=== PATIENT | male | born 1955 | race Caucasian/White ===

== ENCOUNTER 2020-10-10 17:55 | Emergency (ER) | payer BC ==
[~2020-10-10] VITALS: Ht 177.8 cm; Wt 83.9 kg
[2020-10-10] MEDS ORDERED: METOPROLOL SUCC25 MG PO (18:20)
[2020-10-10] MEDS ORDERED: ASPI325 PO (18:21)
[2020-10-10 18:29] LABS: BASOPHILS ABSOLUTE AUTO 0.03 K/mm3 (0.00-0.23); BASOPHILS PERCENT AUTO 0 % (0-2); EOSINOPHILS ABSOLUTE AUTO 0.02 K/mm3 (0.00-0.68); EOSINOPHILS PERCENT AUTO 0 % (0-6); IMMATURE GRAN ABSOLUTE AUTO 0.03 K/mm3 (0.00-0.10); IMMATURE GRAN PERCENT AUTO 0 % (0-1); LYMPHOCYTES ABSOLUTE AUTO 2.24 K/mm3 (0.84-5.20); LYMPHOCYTES PERCENT AUTO 28 % (21-46); MONOCYTES ABSOLUTE AUTO 0.65 K/mm3 (0.16-1.47); MONOCYTES PERCENT AUTO 8 % (4-13); Mean Corpuscular HGB 32.7 pg (26.0-34.0); Mean Corpuscular Volume 96 fL (80-100); Mean Platelet Volume 9.9 fL (9.1-12.4); NEUTROPHILS ABSOLUTE AUTO 5.04 K/mm3 (1.96-9.15); NEUTROPHILS PERCENT AUTO 63 % (41-73); Platelet Count 182 K/mm3 (150-400); RDW Standard Deviation 50.5 fL (35.1-46.3); White Blood Cell Count 8.01 K/mm3 (4.00-11.30)
[2020-10-10 21:19] LABS: Alanine Aminotransfer (ALT/SGP 112 U/L (12-78); Albumin, Blood 3.9 g/dL (3.4-5.0); Albumin/Globulin Ratio 1.2 (0.8-1.8); Alk Phos 50 U/L (50-136); Anion Gap 5 mmol/L (6-16); Aspartate Aminotrans (AST/SGOT 56 U/L (12-37); Bilirubin, Total 0.7 mg/dL (0.1-1.0); Blood Urea Nitrogen 12 mg/dL (8-24); Bun/Creatinine Ratio 13.6 (12.0-20.0); CO2, Blood 30 mmol/L (21-32); Calcium, Blood 8.9 mg/dL (8.5-10.1); Chloride, Blood 105 mmol/L (98-108); Creatinine, Blood 0.88 mg/dL (0.60-1.20); Globulin, Blood 3.2 g/dL (2.2-4.0); Glomerular Filtration Rate >60 (60-); Glucose, Blood 101 mg/dL (70-99); Potassium, Blood 4.1 mmol/L (3.5-5.5); Sodium, Blood 140 mmol/L (136-145); Total Protein, Blood 7.1 g/dL (6.4-8.2)
== END 2020-10-10 21:21 | disposition home or self-care (01) ==
LOC: ER 17:55
PROVIDERS: Physician Assistant
DX: J93.83 Other pneumothorax (principal); J44.9 Chronic obstructive pulmonary disease, unspecified; F17.210 Nicotine dependence, cigarettes, uncomplicated; Z86.010 Personal history of colon polyps
CPT/HCPCS: 32551; 36415; 71045; 71046; 80053; 85025; 93005; 93010; 96374-59; 99284-25; J3010

== ENCOUNTER 2020-10-18 12:23 | Inpatient (IN) | payer BC ==
[~2020-10-18] VITALS: Ht 182.9 cm; Wt 81.0 kg
[~2020-10-18 12:23] MED LIST: ASPI325 PO; METOPROLOL SUCC25 MG PO
[2020-10-18 15:42] LABS: BASOPHILS ABSOLUTE AUTO 0.03 K/mm3 (0.00-0.23); BASOPHILS PERCENT AUTO 1 % (0-2); EOSINOPHILS ABSOLUTE AUTO 0.04 K/mm3 (0.00-0.68); EOSINOPHILS PERCENT AUTO 1 % (0-6); Hematocrit 47.6 % (37.0-53.0); Hemoglobin 16.3 g/dL (13.5-17.5); IMMATURE GRAN ABSOLUTE AUTO 0.04 K/mm3 (0.00-0.10); IMMATURE GRAN PERCENT AUTO 1 % (0-1); LYMPHOCYTES ABSOLUTE AUTO 1.38 K/mm3 (0.84-5.20); LYMPHOCYTES PERCENT AUTO 23 % (21-46); MONOCYTES ABSOLUTE AUTO 0.56 K/mm3 (0.16-1.47); MONOCYTES PERCENT AUTO 9 % (4-13); Mean Corpuscular HGB 33.3 pg (26.0-34.0); Mean Corpuscular HGB Conc 34.2 g/dL (31.5-36.5); Mean Corpuscular Volume 97 fL (80-100); Mean Platelet Volume 10.8 fL (9.1-12.4); NEUTROPHILS ABSOLUTE AUTO 3.93 K/mm3 (1.96-9.15); NEUTROPHILS PERCENT AUTO 66 % (41-73); Platelet Count 215 K/mm3 (150-400); RDW Coefficient Variation 12.9 % (11.7-14.2); RDW Standard Deviation 46.4 fL (35.1-46.3); Red Blood Cell Count 4.89 M/mm3 (4.30-5.90); White Blood Cell Count 5.98 K/mm3 (4.00-11.30)
[2020-10-18 16:03] LABS: Alanine Aminotransfer (ALT/SGP 66 U/L (12-78); Albumin, Blood 3.8 g/dL (3.4-5.0); Alk Phos 53 U/L (50-136); Anion Gap 6 mmol/L (6-16); Aspartate Aminotrans (AST/SGOT 30 U/L (12-37); Bilirubin, Total 0.6 mg/dL (0.1-1.0); Blood Urea Nitrogen 10 mg/dL (8-24); Bun/Creatinine Ratio 12.8 (12.0-20.0); CO2, Blood 28 mmol/L (21-32); Calcium, Blood 9.4 mg/dL (8.5-10.1); Chloride, Blood 101 mmol/L (98-108); Creatinine, Blood 0.78 mg/dL (0.60-1.20); Glomerular Filtration Rate >60 (60-); Glucose, Blood 105 mg/dL (70-99); Potassium, Blood 4.7 mmol/L (3.5-5.5); Sodium, Blood 135 mmol/L (136-145); Total Protein, Blood 7.8 g/dL (6.4-8.2)
--- NOTE | 2020-10-18 21:14 | NUR ---
PT ARRIVED TO ROOM FROM ER. PT A/O, VSS. LUNGS DIM W/FAINT WHEEZING. PT REP LESS SOB SINCE CT REPLACED, DOES REP DIFFICULTY TAKING DEEP BREATH, HAS OCC LOOSE COUGH. 2LOC NC IN PLACE. CT CONNECTED TO SX. DRAIN UNABLE TO ACHEIVE SX, REPLACED BY DICK GOMEZ RN AFTER PT ARRIVED TO ROOM. DRAIN CONNECTED TO LOW SX, BUBBLING AND TIDALING PRESENT. NO CREPITUS NOTED. PT REP FEELING ANXIOUS, REP IS DAILY DRINKER OF 6-12 BEERS/DAY, LAST DRINK 10/17/20. PT ALSO REP HX PTSD/ANXIETY. PT MED FOR ANXIETY PER REQ. DISCUSSED WITHDRAWL SX, PT DENIES ANY AT THIS TIME. PT ORIENTED TO ROOM/CALL LIGHT, WILL MONITOR AND TX PER ORDERS.
--- NOTE | 2020-10-19 06:41 | NUR ---
PT VSS T/O NIGHT. SATS >92% ON 2LO2 NC. THORAVENT TO SX, BULLBLING AND TIDALING PRESENT, NO LEAKS NOTED. LUNGS DIM W/OCC WHEEZING, PT HAS LOOSE COUGH, REP PAIN W/DEEP BREATHS. PT MED FOR ANXIETY X1, DECLINED NEED FOR PAIN MEDS. CIWA STABLE.
--- NOTE | 2020-10-19 16:23 | NUR ---
DISCHARGE SUMMARY PATIENT ALERT AND ORIENTED THROUGHOUT SHIFT. EASY UNLABORED BREATHING. REPORTS MILD SORENESS TO RIGHT CHEST WALL AND RIBS. TOLERATING REGULAR DIET. VOIDING WELL. DISCHARGE ORDERS OBTAINED. DISCONNECTED CHEST TUBE FROM WALL SUCTION AND CLOSED CAP ON CHEST TUBE BOX. DC'D IV WNL. DISCHARGE EDUCATION GIVEN ON SIGNS AND SYMPTOMS OF PNEUMO AND WHEN TO RETURN TO ER. ALSO WHEN TO FOLLOW UP WITH DR SHERIDAN. PLAN IS TO CHECK PNEUMO WITH XRAY ON SATURDAY OF SATURDAY. DR SHERIDAN'S OFFICE WILL NOTIFY PATIENT. PATIENT LEFT UNIT VIA WHEELCHAIR FOR HOME AT 1615.
== END 2020-10-19 16:19 | disposition home or self-care (01) | DRG 201 ==
LOC: ER 12:23 → SURS 17:45
PROVIDERS: Emergency Medicine; ADMIT Surgery
PROC: 0WP930Z Removal of Drainage Device from Right Pleural Cavity, Percutaneous Approach (ICD-10-PCS; principal; 2020-10-18)
PROC: 0W9930Z Drainage of Right Pleural Cavity with Drainage Device, Percutaneous Approach (ICD-10-PCS; 2020-10-18)
DX: J93.83 Other pneumothorax (principal); I25.10 Atherosclerotic heart disease of native coronary artery without angina pectoris; F41.9 Anxiety disorder, unspecified; I10 Essential (primary) hypertension; F43.10 Post-traumatic stress disorder, unspecified; F17.210 Nicotine dependence, cigarettes, uncomplicated; Z95.5 Presence of coronary angioplasty implant and graft; Z79.82 Long term (current) use of aspirin; Z79.899 Other long term (current) drug therapy; Z98.890 Other specified postprocedural states
CPT/HCPCS: 32551; 36415; 71045; 80053; 85025; 96374-59; 96376-59; 99285-25; A9270; J1650; J2060

== ENCOUNTER 2020-11-22 17:14 | Emergency (ER) | payer BC ==
[~2020-11-22] VITALS: Ht 177.8 cm; Wt 81.2 kg
[2020-11-22 17:46] LABS: BASOPHILS ABSOLUTE AUTO 0.03 K/mm3 (0.00-0.23); BASOPHILS PERCENT AUTO 0 % (0-2); EOSINOPHILS ABSOLUTE AUTO 0.02 K/mm3 (0.00-0.68); EOSINOPHILS PERCENT AUTO 0 % (0-6); Hematocrit 49.2 % (37.0-53.0); IMMATURE GRAN ABSOLUTE AUTO 0.03 K/mm3 (0.00-0.10); IMMATURE GRAN PERCENT AUTO 0 % (0-1); LYMPHOCYTES ABSOLUTE AUTO 1.86 K/mm3 (0.84-5.20); LYMPHOCYTES PERCENT AUTO 28 % (21-46); MONOCYTES ABSOLUTE AUTO 0.63 K/mm3 (0.16-1.47); MONOCYTES PERCENT AUTO 9 % (4-13); Mean Corpuscular HGB 33.1 pg (26.0-34.0); Mean Corpuscular HGB Conc 34.6 g/dL (31.5-36.5); Mean Corpuscular Volume 96 fL (80-100); Mean Platelet Volume 10.3 fL (9.1-12.4); NEUTROPHILS ABSOLUTE AUTO 4.15 K/mm3 (1.96-9.15); NEUTROPHILS PERCENT AUTO 62 % (41-73); Platelet Count 185 K/mm3 (150-400); RDW Coefficient Variation 12.8 % (11.7-14.2); RDW Standard Deviation 46.1 fL (35.1-46.3); Red Blood Cell Count 5.13 M/mm3 (4.30-5.90); White Blood Cell Count 6.72 K/mm3 (4.00-11.30)
[2020-11-22] MEDS ORDERED: ATORVASTATIN CA40 M1 PO (17:46)
[2020-11-22 18:20] LABS: Alanine Aminotransfer (ALT/SGP 69 U/L (12-78); Albumin, Blood 4.1 g/dL (3.4-5.0); Alk Phos 58 U/L (50-136); Anion Gap 8 mmol/L (6-16); Aspartate Aminotrans (AST/SGOT 35 U/L (12-37); Bilirubin, Total 0.5 mg/dL (0.1-1.0); Blood Urea Nitrogen 9 mg/dL (8-24); Bun/Creatinine Ratio 10.6 (12.0-20.0); CO2, Blood 26 mmol/L (21-32); Calcium, Blood 9.3 mg/dL (8.5-10.1); Chloride, Blood 99 mmol/L (98-108); Creatinine, Blood 0.85 mg/dL (0.60-1.20); Globulin, Blood 4.1 g/dL (2.2-4.0); Glomerular Filtration Rate >60 (60-); Glucose, Blood 99 mg/dL (70-99); Potassium, Blood 4.1 mmol/L (3.5-5.5); Sodium, Blood 133 mmol/L (136-145); Total Protein, Blood 8.2 g/dL (6.4-8.2)
== END 2020-11-22 19:46 | disposition home or self-care (01) ==
LOC: ER 17:14
PROVIDERS: Physician Assistant
DX: J93.9 Pneumothorax, unspecified (principal); F17.210 Nicotine dependence, cigarettes, uncomplicated; Z88.6 Allergy status to analgesic agent; Z79.899 Other long term (current) drug therapy; Z79.82 Long term (current) use of aspirin
CPT/HCPCS: 32551; 36415; 71045; 80053; 85025; 96374; 96375; 99284-25; J2060; J3010

== ENCOUNTER 2020-12-15 00:08 | Emergency (ER) | payer BC ==
[~2020-12-15 00:08] MED LIST changes: +ATORVASTATIN CA40 M1 PO
== END 2020-12-15 04:02 | disposition home or self-care (01) ==
LOC: ER 00:08
DX: J93.9 Pneumothorax, unspecified (principal); F17.200 Nicotine dependence, unspecified, uncomplicated
CPT/HCPCS: 71046; 99283-25

== ENCOUNTER 2020-12-28 01:21 | Inpatient (IN) | payer BC ==
[~2020-12-28] VITALS: Ht 162.6 cm; Wt 78.9 kg
[2020-12-28] MEDS ORDERED: OXYCODONE-ACET1 EAC3 PO (01:52)
[2020-12-28] MEDS ORDERED: LOSA50 PO (01:53)
[2020-12-28] MEDS ORDERED: BUPR150ER PO (01:53)
[2020-12-28 02:18] LABS: BASOPHILS ABSOLUTE AUTO 0.02 K/mm3 (0.00-0.23); BASOPHILS PERCENT AUTO 0 % (0-2); EOSINOPHILS ABSOLUTE AUTO 0.01 K/mm3 (0.00-0.68); EOSINOPHILS PERCENT AUTO 0 % (0-6); Hematocrit 47.4 % (37.0-53.0); Hemoglobin 16.1 g/dL (13.5-17.5); IMMATURE GRAN ABSOLUTE AUTO 0.07 K/mm3 (0.00-0.10); IMMATURE GRAN PERCENT AUTO 1 % (0-1); LYMPHOCYTES ABSOLUTE AUTO 1.25 K/mm3 (0.84-5.20); LYMPHOCYTES PERCENT AUTO 18 % (21-46); MONOCYTES ABSOLUTE AUTO 0.54 K/mm3 (0.16-1.47); MONOCYTES PERCENT AUTO 8 % (4-13); Mean Corpuscular HGB 32.7 pg (26.0-34.0); Mean Corpuscular Volume 96 fL (80-100); Mean Platelet Volume 10.4 fL (9.1-12.4); NEUTROPHILS ABSOLUTE AUTO 5.05 K/mm3 (1.96-9.15); NEUTROPHILS PERCENT AUTO 73 % (41-73); Platelet Count 184 K/mm3 (150-400); RDW Coefficient Variation 13.1 % (11.7-14.2); RDW Standard Deviation 46.7 fL (35.1-46.3); Red Blood Cell Count 4.92 M/mm3 (4.30-5.90); White Blood Cell Count 6.94 K/mm3 (4.00-11.30)
[2020-12-28 02:33] LABS: Alanine Aminotransfer (ALT/SGP 55 U/L (12-78); Albumin, Blood 3.4 g/dL (3.4-5.0); Albumin/Globulin Ratio 0.7 (0.8-1.8); Alk Phos 55 U/L (50-136); Anion Gap 7 mmol/L (6-16); Aspartate Aminotrans (AST/SGOT 38 U/L (12-37); Bilirubin, Total 0.3 mg/dL (0.1-1.0); Blood Urea Nitrogen 9 mg/dL (8-24); Bun/Creatinine Ratio 11.6 (12.0-20.0); CO2, Blood 26 mmol/L (21-32); Calcium, Blood 9.5 mg/dL (8.5-10.1); Chloride, Blood 102 mmol/L (98-108); Creatinine, Blood 0.77 mg/dL (0.60-1.20); Globulin, Blood 4.6 g/dL (2.2-4.0); Glomerular Filtration Rate >60 (60-); Glucose, Blood 118 mg/dL (70-99); Potassium, Blood 4.2 mmol/L (3.5-5.5); Sodium, Blood 135 mmol/L (136-145)
--- NOTE | 2020-12-28 06:08 | NUR ---
PT ARRIVES THIS AM NEAR 0500 PCU STATUS, STANDS TO TRANSFER TO BED, SATS ARE NOTED HIGH 90S ON ROOM AIR, HYPERTENSION NOTED, PT DOES REPORT ANXIETY RELATED TO CLAUSTROPHOBIA AND FEELING LIKE HE'S CURRENTLY BEING STRANGLED DUE TO SUBCUTANEOUS EMPHYSEMA TO NECK AND FACE, ATIVAN 1 MG IV ADMINISTERED PLAN TO REASSESS BLOOD PRESSURE, PT DID NOT TAKE HS MEDS YESTERDAY AND HOME MEDS ARE ORDERED FOR THIS AM. PER ER PLAN IS FOR PT TO TRANSFER TO [facility] THIS AM. HRR, SINUS ON MONITOR, EDEMA TO BILAT ANKLES, BRISK CAP REFILL NOTED. LUNGS DIM THROUGHOUT, EXPIRATORY RUB NOTED NEAR RIGHT CHEST TUBE INSERTION SITE, GOOD TIDALING IS NOTED TO PLEUROVAC, AIR LEAK WITH EXPIRATION AND COUGHING. ADMISSION COMPLETED, DISCUSSED PLAN OF CARE FOR THIS AM WITH PT AND SPOUSE. CALL LIGHT PROVIDED, USE EXPLAINED AND ENCOURAGED.
[2020-12-28 12:53] LABS: BASOPHILS ABSOLUTE AUTO 0.01 K/mm3 (0.00-0.23); BASOPHILS PERCENT AUTO 0 % (0-2); EOSINOPHILS ABSOLUTE AUTO 0.04 K/mm3 (0.00-0.68); EOSINOPHILS PERCENT AUTO 1 % (0-6); Hematocrit 38.3 % (37.0-53.0); Hemoglobin 12.7 g/dL (13.5-17.5); IMMATURE GRAN ABSOLUTE AUTO 0.04 K/mm3 (0.00-0.10); IMMATURE GRAN PERCENT AUTO 1 % (0-1); LYMPHOCYTES ABSOLUTE AUTO 0.96 K/mm3 (0.84-5.20); LYMPHOCYTES PERCENT AUTO 20 % (21-46); MONOCYTES ABSOLUTE AUTO 0.37 K/mm3 (0.16-1.47); MONOCYTES PERCENT AUTO 8 % (4-13); Mean Corpuscular HGB 32.4 pg (26.0-34.0); Mean Corpuscular HGB Conc 33.2 g/dL (31.5-36.5); Mean Corpuscular Volume 98 fL (80-100); Mean Platelet Volume 10.2 fL (9.1-12.4); NEUTROPHILS ABSOLUTE AUTO 3.47 K/mm3 (1.96-9.15); NEUTROPHILS PERCENT AUTO 71 % (41-73); Platelet Count 146 K/mm3 (150-400); RDW Coefficient Variation 13.2 % (11.7-14.2); Red Blood Cell Count 3.92 M/mm3 (4.30-5.90); White Blood Cell Count 4.89 K/mm3 (4.00-11.30)
[2020-12-28 13:25] LABS: Alanine Aminotransfer (ALT/SGP 38 U/L (12-78); Albumin, Blood 2.3 g/dL (3.4-5.0); Albumin/Globulin Ratio 0.7 (0.8-1.8); Alk Phos 35 U/L (50-136); Anion Gap 4 mmol/L (6-16); Aspartate Aminotrans (AST/SGOT 24 U/L (12-37); Bilirubin, Total 0.5 mg/dL (0.1-1.0); Blood Urea Nitrogen 7 mg/dL (8-24); CO2, Blood 26 mmol/L (21-32); Chloride, Blood 111 mmol/L (98-108); Globulin, Blood 3.1 g/dL (2.2-4.0); Glomerular Filtration Rate >60 (60-); Glucose, Blood 92 mg/dL (70-99); Potassium, Blood 3.9 mmol/L (3.5-5.5); Sodium, Blood 141 mmol/L (136-145)
[2020-12-28 15:00] LABS: Calcium, Blood 7.4 mg/dL (8.5-10.1)
[2020-12-28 15:01] LABS: Total Protein, Blood 5.4 g/dL (6.4-8.2)
--- NOTE | 2020-12-29 05:50 | NUR ---
SHIFT SUMMARY REPORT: Neuro - AOx4, able to move all extremities, was extremely tired and sleepy in the beginning of shift but more interactive and cooperative this morning. Still has significant pain that is controlled with fent and percocet. Resp - lung sounds are diminished, subcutaneous emphysema still significant on the right neck area all the way through right wrist. Pt was on 2L oxygen while asleep. Some subcutaneous emphysema can also be felt on left neck/shoulder area. Chest tube dressing changed, saturated 1x ABD pad, +1 air leak and tidals, chest tube total output is 37 mL. Cardiac: hypertensive with activity and increased pain level. Controlled pain and gave 1x 10 mg of hydralazine overnight. Generalized edema d/t subQ emphysema and +1/+2 on BLE. Afebrile. GI/: adequate UO, able to eat and drink independently, No BM
[2020-12-29 07:18] LABS: BASOPHILS ABSOLUTE AUTO 0.01 K/mm3 (0.00-0.23); BASOPHILS PERCENT AUTO 0 % (0-2); EOSINOPHILS ABSOLUTE AUTO 0.05 K/mm3 (0.00-0.68); EOSINOPHILS PERCENT AUTO 1 % (0-6); Hematocrit 43.6 % (37.0-53.0); Hemoglobin 15.1 g/dL (13.5-17.5); IMMATURE GRAN ABSOLUTE AUTO 0.04 K/mm3 (0.00-0.10); IMMATURE GRAN PERCENT AUTO 1 % (0-1); LYMPHOCYTES ABSOLUTE AUTO 1.17 K/mm3 (0.84-5.20); LYMPHOCYTES PERCENT AUTO 16 % (21-46); MONOCYTES ABSOLUTE AUTO 0.67 K/mm3 (0.16-1.47); MONOCYTES PERCENT AUTO 9 % (4-13); Mean Corpuscular HGB 32.8 pg (26.0-34.0); Mean Corpuscular HGB Conc 34.6 g/dL (31.5-36.5); Mean Corpuscular Volume 95 fL (80-100); Mean Platelet Volume 10.1 fL (9.1-12.4); NEUTROPHILS ABSOLUTE AUTO 5.26 K/mm3 (1.96-9.15); NEUTROPHILS PERCENT AUTO 73 % (41-73); Platelet Count 181 K/mm3 (150-400); RDW Coefficient Variation 13.2 % (11.7-14.2)
--- NOTE | 2020-12-29 09:00 | NUR ---
ASSUMPTION OF CARE PATIENT A&OX4. MOVES ALL EXTEMITIES EQUALLY. EXPLAINS HIS BROTHER LAST WEEK - HE IS SHOWING SIGNS OF NORMAL GRIEVING. COMPLAINS OF PAIN AT R CHEST TUBE SITE THAT INCREASES WITH MOVEMENT. PATIENT ON RA WHILE AWAKE. CHEST TUBE IS TO -20, TIDALING, WITH A +2 AIRLEAK - MD AWARE. CT DRAINING SANGINOUS FLUID. CT DRESSING WNL. BREATH SOUNDS DIM BILATERALLY. SUBCUTANEOUS EMPHYSEMA FROM NIPPLE LINE SUPERIOR TO NECK AND FACE, INFERIOR TO BILATERAL WRIST, MORE SIGNIFICANT ON RIGHT SIDE. SPONTANEOUSLY VIODS CLEAR YELLOW URINE IN URINAL. GOOD ORAL INTAKE.
--- NOTE | 2020-12-29 15:57 | NUR ---
Initial Assessment with [facility] Demand Planning Analyst 1. Who did you speak with? Patient 2. What is the patient's prior level of functions? Independent 3. What is the patient's current living situation? Patient lives with his in a single dwelling and patient is able to return home. Patient has a safe and stable home with running water, heat electricity, and sewage. No barriers at this time. 4. Is the patient and/or family able to provide transportation to and from doctor's appointments and [facility]ler prescriptions? Yes 5. Does patient still drive? Yes 6. POA/PCP/NOK: PCP is with Jefry Howard and NOK is his Sandi Hall. 7. Discharge goals: -DME: Patient uses crutches at times -Medication Management Self -Preferred Pharmacy: -Housekeeping need: No -Able to cook for self: yes 8. List barriers to discharge -SNF Placement: TBD -Memory Care: No -Transportation needs: No spouse drives -Financial concerns: No -Drug/Alcohol treatment: Alcohol TBD -Home Health: TBD -Hospice: No 9. Discharge Plan: TBD 10. PCP Follow up appointment: Will be scheduled within seven calendar days of discharge.
--- NOTE | 2020-12-29 18:06 | NUR ---
NO SIGNIFICANT EVENTS THIS SHIFT. PT. COMPLAINS OF PAIN AT RIGHT CHEST TUBE SITE - TREATED WITH PERCOCET. A&O X4. WALKED AROUND UNIT TWICE WITH STAFF. ON RA WITH SATS GREATER THAN 90%. BILATERAL DIMINSHED BREATH SOUNDS. CT TO -20 TIDALING WITH AIRLEAK, DRAINING SANGUINOUS FLUID. 10 ML OUT THIS SHIFT. IN SINUS RHYTHM. SBP 130S - 140S. BM DURING THIS SHIFT. VOIDS IN URINAL.
--- NOTE | 2020-12-30 04:27 | NUR ---
SHIFT SUMMARY: Pt AOx4, pleasant and cooperative, independently preforms ADLs and appropriately calls for assistance when needed. Complained of generalized pain around the chest tube site 2x throughout the night, gave Percocet for pain. Chest tube site remains clean, dry and intact, still on suction at -20mmHg. No chest tube output for the night. UO adequate and uses the urinal idependently.
--- NOTE | 2020-12-31 05:42 | NUR ---
END OF SHIFT SUMMARY: Overall, pt rested comfortably throughout the night. Reported of anxiety and alcohol withdrawal symtoms twice and 1 mg of Ativan helped pt tremedously. Pain was also controlled with Percocet. Subcutaneous emphysema remains significant and has not improved. SubQ emphysema starts at neck area and ends at right hand. Chest tube site clean, dry and intact. Pt also denies any SOB during ALDs or ROM. Pt looking forward to being discharged today.
--- NOTE | 2020-12-31 10:22 | NUR ---
PT ALERT AND ORIENTED X3, DISCHARGE INSTRUCTIONS GIVEN, DEMONSTRATED HOW TO CLEAN INCISION AREA AND TO MAINTAIN IT CLEAN,DRY AND INTACT. DISCHARGED AT 1015 PICKED PATIENT FROM HOSPITAL
--- NOTE | 2020-12-31 10:34 | NUR ---
Pt discharging home. Acessed pt teaching and care of chest tube. Pt high risk for readmission will follow up with [facility].
--- NOTE | 2021-01-02 12:14 | NUR ---
Per Dr. Ida Cuevas discharge appropriate for 12/31/20. Spoke with patient whom is aware of discharge and does not oppose. The day prior to discharge his chest tube was taken off of suction and a Heimlich valve was place without issue. On day of discharge a repeat chest X-ray was stable with no recurrent/worsening right pneumothorax. Patient was educated on return precautions and chest tube management. He was able to be discharge home in stable condition. He has a follow up appointment scheduled for early this week and repeat X-ray can be done at that time. He will also need follow up with Dr. Duran in 1 to 2 weeks for chest tube management. Patient discharged; drove patient home to their residence. Patient has a follow up appt with his PCP on 01/04. Patient knows to contact her PCP if he has any questions regarding medication management or any medical or social service needs. No barriers to discharge.
== END 2020-12-31 10:15 | disposition home or self-care (01) | DRG 201 ==
LOC: ER 01:21 → ICUW 01:22 → ER 02:57 → PCU 02:57 → ICUW 04:31
PROVIDERS: Family Medicine; Student in an Organized Health Care Education/Training Program; ADMIT Internal Medicine
PROC: 0W9930Z Drainage of Right Pleural Cavity with Drainage Device, Percutaneous Approach (ICD-10-PCS; principal; 2020-12-28)
PROC: 3E02340 Introduction of Influenza Vaccine into Muscle, Percutaneous Approach (ICD-10-PCS; 2020-12-28)
DX: J93.9 Pneumothorax, unspecified (principal); I10 Essential (primary) hypertension; Z88.8 Allergy status to other drugs, medicaments and biological substances; J98.2 Interstitial emphysema; F41.9 Anxiety disorder, unspecified; F43.10 Post-traumatic stress disorder, unspecified; Z79.82 Long term (current) use of aspirin; Z79.899 Other long term (current) drug therapy; F17.210 Nicotine dependence, cigarettes, uncomplicated
CPT/HCPCS: 32551; 36415; 71045; 80053; 85025; 96372; 96374; 96375; 96376; 99291-25; A9270; G0378; J0360; J1650; J2060; J2405; J3010; J7030

== ENCOUNTER → 2024-01-15 | Outpatient (CLI) | payer MEDICARE, OTHER ==
[~2024-01-15] MED LIST changes: +BUPR150ER PO; +LOSA50 PO; +OXYCODONE-ACET1 EAC3 PO
[2024-01-15 14:27] LABS: Microalbumin, Random Urine 13.2 mg/L (0.000-20.000)
== END | disposition home or self-care (01) ==
LOC: LAB SHORT 09:30 → LAB 09:30 → LAB SHORT 10:09
PROVIDERS: Family Medicine
DX: I11.9 Hypertensive heart disease without heart failure (principal)
CPT/HCPCS: 82043; 82570